=== PATIENT | female | born 1945 | race Caucasian/White ===

== ENCOUNTER → 2016-10-25 | Outpatient (CLI) | payer BC ==
[~2016-10-25] MED LIST: ASPIRIN81 M2 PO; CALCIUM + D3 E1 EACH PO; GLUCOSAMINE & C1 CAP PO; LIPITOR PO; LOPRESSOR PO; VITAMIN B-6200 MG PO; WOMEN'S MULTI1 EACH PO
--- NOTE | ~2016-10-25 | MY11 ---
[facility] A Service of [facility] RADIOLOGY TEXT RESULTS PATIENT: ARIANNA COSTA LOCATION: [facility] : 43 UNIT #: [id number] AGE: [address]: Mario Harrison MD SEX: F ORDER DR: [id number] [facility] [address] [place], [place] [address] [id number] O MR#: [id number] Acc #: [id number] NAME: ARIANNA COSTA : 1945 SEX: F STUDY DATE/TIME: 10/25/2016 7:59 UNIT: [facility] ROOM: STUDY DESCRIPTION: MY Mammogram Screening [place] Attending Physician: Mario Harrison M.D. Referring Physician: Mario Harrison M.D. Ordering Physician: Mario Harrison M.D. Primary Care Physician: Mario Harrison M.D. MEDICAL IMAGING REPORT This report is preliminary unless electronic signature is present EXAM Digital screening mammogram, 10/25/2016. HISTORY 70-year-old woman; positive family history, sister. Prior breast biopsies. Annual screening. COMPARISON STUDIES Comparison mammograms date to 11/22/2005, with most recent screening comparison 10/19/2015. FINDINGS Digital imaging of each breast was completed, utilizing screening protocol. Bilateral biopsy markers are placed. Numerous mole markers are also placed on each breast. Review includes FDA-approved CAD device. Breast parenchyma remains extremely dense, reducing sensitivity of mammography. There are occasional benign calcifications, more so in the immediate left subareolar location. I see no suspicious mass characteristics. There are no suspicious microcalcifications and no architectural deformity. Given the family history and extremely dense breast parenchyma, consider adding breast tomosynthesis to this patient's annual screening protocol. This could be provided at the [facility]. IMPRESSION Stable benign mammogram. Dense breast parenchyma noted. See report with recommendations in this regard. Patients over the age of 40 are entered into a reminder system with target due date for the next mammogram. A result letter will also be sent to the [facility] A Service of [facility] RADIOLOGY TEXT RESULTS PATIENT: ARIANNA COSTA LOCATION: [facility] : 43 UNIT #: [id number] AGE: [address]: Mario Harrison MD SEX: F ORDER DR: patient. BIRADS: 2 Benign finding. Dictated by... Cheo Osman M.D. THIS IS AN ELECTRONICALLY VERIFIED REPORT Cheo Osman M.D. at 10/25/2016 2:43 PM Haley TD: 10/25/2016 13:47 JOB #: [id number] MEDICAL IMAGING REPORT Page 1 of 1 COPY
== END | disposition home or self-care (01) ==
LOC: CWCC 07:35
DX: Z12.31 Encounter for screening mammogram for malignant neoplasm of breast (principal); Z80.3 Family history of malignant neoplasm of breast; R92.8 Other abnormal and inconclusive findings on diagnostic imaging of breast; Z98.890 Other specified postprocedural states
CPT/HCPCS: G0202

== ENCOUNTER → 2017-04-07 | Outpatient (CLI) | payer BC ==
--- NOTE | ~2017-04-07 | BD1 ---
[facility] A Service of [facility] RADIOLOGY TEXT RESULTS PATIENT: ARIANNA COSTA LOCATION: [facility] : 43 UNIT #: [id number] AGE: [address]: Mario Harrison MD SEX: F ORDER DR: [id number] [facility] [address] [place], [place] [address] [id number] O MR#: [id number] Acc #: [id number] NAME: ARIANNA COSTA : 1945 SEX: F STUDY DATE/TIME: 04/07/2017 9:28 UNIT: [facility] ROOM: STUDY DESCRIPTION: BD Dexa Bone Dens 1+ Site Attending Physician: aMrio Harrison M.D. Referring Physician: Mario Harrison M.D. Ordering Physician: Mario Harrison M.D. Primary Care Physician: Mario Harrison M.D. MEDICAL IMAGING REPORT This report is preliminary unless electronic signature is present EXAM DXA scan 04/07/2017 HISTORY Status post menopause with no hormone replacement therapy. Osteopenia. Family history of breast carcinoma in 3 sisters. Diabetes. Hypertension with blood pressure medication. FINDINGS Bone mineral density in the lumbar spine from L1-L4 was 0.819 g/cm2 which is 2.1 standard deviations below the mean when compared to the young adult reference population which is characteristic of osteopenia. This is 0.2 standard deviations above the mean when compared to the age-matched population. Compared with 04/06/2015, there has been a decrease in bone mineral density in the lumbar spine of 2.7%. Bone mineral density in the left femoral neck was 0.679 g/cm2 which is 1.5 standard deviations below the mean when compared to the young adult reference population which is characteristic of osteopenia. This is 0.4 standard deviations above the mean when compared to the age-matched population. Compared with 04/06/2015, there has been a decrease in bone mineral density in the left hip of 2.3%. IMPRESSION Bone mineral density in the lumbar spine and left hip characteristic of osteopenia. Compared with 04/06/2015, there has been a decrease in bone mineral density in the lumbar spine and the left hip. Dictated by... Norman Lutz M.D. THIS IS AN ELECTRONICALLY VERIFIED REPORT [facility] A Service of [facility] RADIOLOGY TEXT RESULTS PATIENT: ARIANNA COSTA LOCATION: [facility] : 43 UNIT #: [id number] AGE: [address]: Mario Harrison MD SEX: F ORDER DR: Norman Lutz M.D. at 04/07/2017 4:32 PM LUZ MARIA/prem TD: 04/07/2017 10:15 JOB #: [id number] MEDICAL IMAGING REPORT Page 1 of 1 COPY
== END | disposition home or self-care (01) ==
LOC: CWCC 09:11
DX: M85.80 Other specified disorders of bone density and structure, unspecified site (principal); M85.89 Other specified disorders of bone density and structure, multiple sites
CPT/HCPCS: 77080